=== PATIENT | male | born 2000 | race Asian ===

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

== ENCOUNTER 2022-07-07 15:28 | Emergency (ER) | payer BC, MEDICAID ==
[~2022-07-07] VITALS: Ht 175.3 cm; Wt 81.8 kg
[2022-07-07 15:33] VITALS: BP 129/67
[2022-07-07] MEDS ORDERED: rabies immune globulin/PF 150 unit/ml inj IMVAC ONE (16:20)
[2022-07-07] MEDS ORDERED: rabies vaccine (PCEC)/PF 2.5 unit kit IMVAC ONE (16:20)
[2022-07-07] MEDS ORDERED: TETanus/Pertussis (Acell)/Diphther VAC/PF (Tdap-Adult) 0.5ml syringe IMVAC ONE (16:20)
== END 2022-07-07 17:13 | disposition home or self-care (01) ==
LOC: ER 15:29
DX: S71.131A Puncture wound without foreign body, right thigh, initial encounter (principal); Z91.018 Allergy to other foods; W54.0XXA Bitten by dog, initial encounter; Y93.89 Activity, other specified; Y92.89 Other specified places as the place of occurrence of the external cause; Y99.8 Other external cause status; Z20.3 Contact with and (suspected) exposure to rabies
CPT/HCPCS: 90376; 90471; 90472; 90675; 90715; 96372; 99284

== ENCOUNTER 2022-07-11 16:01 | Emergency (ER) | payer MEDICAID ==
[~2022-07-11] VITALS: Ht 175.3 cm; Wt 77.3 kg
[2022-07-11 16:10] VITALS: BP 115/55
[2022-07-11] MEDS ORDERED: rabies vaccine (PCEC)/PF 2.5 unit kit IMVAC ONE (17:50)
== END 2022-07-11 18:11 | disposition home or self-care (01) ==
LOC: ER 16:02
DX: T14.8XXD Other injury of unspecified body region, subsequent encounter (principal); Z13.89 Encounter for screening for other disorder; Z23 Encounter for immunization; W64.XXXD Exposure to other animate mechanical forces, subsequent encounter
CPT/HCPCS: 90471; 90675; 99281; 99283

== ENCOUNTER 2024-09-22 12:25 | Emergency (ER) | payer MEDICAID ==
[~2024-09-22] VITALS: Ht 172.7 cm; Wt 88.2 kg
[2024-09-22 12:28] VITALS: TEMP 98.6
[2024-09-22] MEDS ORDERED: proparacaine 0.5% ophthalmic drops 15ml EACHEYE ONE (14:15)
[2024-09-22] MEDS ORDERED: ERYT1OIN6 EACHEYE (15:33)
[2024-09-22 17:01] VITALS: BP 136/52; PULSE 87; RESP 16; O2SAT 98
== END 2024-09-22 12:28 | disposition home or self-care (01) ==
LOC: ER 12:26
DX: S05.02XA Injury of conjunctiva and corneal abrasion without foreign body, left eye, initial encounter (principal); Z88.6 Allergy status to analgesic agent; X58.XXXA Exposure to other specified factors, initial encounter; Y93.89 Activity, other specified; Y92.89 Other specified places as the place of occurrence of the external cause; Y99.8 Other external cause status
CPT/HCPCS: 99283